=== PATIENT | male | born 1950 | race Caucasian/White ===

== ENCOUNTER 2016-10-20 22:25 | Emergency (ER) | payer MEDICARE, BC ==
[2016-10-20 23:36] VITALS: TEMP 98.5
[2016-10-20] MEDS ORDERED: Sodium Chloride 0.9% 1,000 ML IV STA (23:56)
--- NOTE | 2016-10-21 00:03 | ED PDOC ---
Arrival/HPI - General Chief Complaint: GI Problem Time Seen by Provider: 10/20/16 23:56 Historian: Patient, Family - History of Present Illness Narrative History of Present Illness (Text): 10/21/16 00:03 A 66 year old male, whose past medical history includes colorectal cancer, presents to the emergency department complaining of diarrhea. Patient notes soft , loose bowel movements and a strong odor. Patient reports he started chemotherapy two days ago. Patient's niece reports patient had stool testing done in the hospital this morning. Patient denies any fever or any other complaints at this time. Symptom Onset: Sudden Symptom Course: Unchanged Activities at Onset: Rest Context: Home Past Medical History - Provider Review Nursing Documentation Reviewed: Yes - Cardiac Hx Cardiac Disorders: Yes - Pulmonary Hx Respiratory Disorders: No - Neurological Hx Neurological Disorder: No - HEENT Hx HEENT Disorder: No - Renal Hx Renal Disorder: No - Endocrine/Metabolic Hx Endocrine Disorders: No - Hematological/Oncological Hx Blood Disorders: Yes Hx Cancer: Yes (colorectal) Hx Chemotherapy: Yes - Integumentary Hx Dermatological Disorder: No - Musculoskeletal/Rheumatological Hx Musculoskeletal Disorders: No - Gastrointestinal Hx Gastrointestinal Disorders: Yes Hx Bowel Surgery: Yes Hx Diarrhea: Yes - Genitourinary/Gynecological Hx Genitourinary Disorders: No - Psychiatric Hx Psychophysiologic Disorder: No Hx Substance Use: No Family/Social History - Physician Review Nursing Documentation Reviewed: Yes Family/Social History: No Known Family HX Smoking Status: Never Smoked Hx Alcohol Use: No Hx Substance Use: No Allergies/Home Meds Allergies/Adverse Reactions: Allergies No Known Allergies Allergy (Verified 10/20/16 23:35) Home Medications: Home Meds Medication Instructions Recorded Confirmed Aspirin [Ecotrin] 81 mg PO DAILY 10/20/16 10/20/16 Atorvastatin [Lipitor] 80 mg PO DAILY 10/20/16 10/20/16 Spironolactone [Spironolactone] mg PO 10/20/16 Review of Systems - Physician Review All systems were reviewed & negative as marked: Yes - Review of Systems Constitutional: absent: Fevers Gastrointestinal: Diarrhea Physical Exam Vital Signs Reviewed: Yes Vital Signs Temp Pulse Resp BP Pulse Ox 10/21/16 00:35 71 16 133/78 99 10/20/16 23:36 98.5 F 68 16 137/73 94 L Temperature: Afebrile Blood Pressure: Normal Pulse: Regular Respiratory Rate: Normal Appearance: Positive for: Well-Appearing, Non-Toxic, Comfortable Pain Distress: None Mental Status: Positive for: Alert and Oriented X 3 - Systems Exam Head: Present: Atraumatic, Normocephalic Pupils: Present: PERRL Extroacular Muscles: Present: EOMI Conjunctiva: Present: Normal Mouth: Present: Moist Mucous Membranes Neck: Present: Normal Range of Motion Respiratory/Chest: Present: Clear to Auscultation, Good Air Exchange, Other ( port R chest wall). No: Respiratory Distress, Accessory Muscle Use Cardiovascular: Present: Regular Rate and Rhythm, Normal S1, S2. No: Murmurs Abdomen: Present: Normal Bowel Sounds. No: Tenderness, Distention, Peritoneal Signs Back: Present: Normal Inspection Upper Extremity: Present: Normal Inspection. No: Cyanosis, Edema Lower Extremity: Present: Normal Inspection. No: Edema Neurological: Present: GCS=15, CN II-XII Intact, Speech Normal Skin: Present: Warm, Dry, Normal Color. No: Rashes Psychiatric: Present: Alert, Oriented x 3, Normal Insight, Normal Concentration Medical Decision Making ED Course and Treatment: 10/21/16 03:43 pt resting comfortably after 2L NS bolus. I offered admission if he thought he is still too weak to go home but he says he feels ok and would rather be at home which I feel is reasonable. - Lab Interpretations Lab Results: 10/21/16 00:10 10/21/16 00:10 Lab Results 10/21/16 00:10: WBC 6.2, RBC 4.50, Hgb 11.8 L, Hct 34.6 L, MCV 76.9 L, MCH 26.2 , MCHC 34.1, RDW 14.9 H, Plt Count 236, MPV 9.6, Gran % 77.3 H, Lymph % (Auto) 10.9 L, [place] % (Auto) 9.6 H, Eos % (Auto) 2.0, Baso % (Auto) 0.2, Gran # 4.76, Lymph # 0.7 L, [place] # 0.6, Eos # 0.1, Baso # 0.01 10/21/16 00:10: Sodium 129 L, Potassium 4.9, Chloride 94 L, Carbon Dioxide 27, Anion Gap 13, BUN 24 H, Creatinine 0.8, Est GFR ( Amer) > 60, Est GFR ( Non-Af Amer) > 60, Random Glucose 88, Calcium 9.5, Total Bilirubin 1.0, AST 128 H, ALT 233 H, Alkaline Phosphatase 120, Total Protein 8.1, Albumin 4.4, Globulin 3.8, Albumin/Globulin Ratio 1.2 I have reviewed the lab results: Yes - Medication Orders Current Medication Orders: Discontinued Medications Sodium Chloride (Sodium Chloride 0.9%) 1,000 mls @ 999 mls/hr IV .Q1H1M STA Stop: 10/21/16 00:56 Last Admin: 10/21/16 00:17 Dose: 999 mls/hr Sodium Chloride (Sodium Chloride 0.9%) 1,000 mls @ 999 mls/hr IV .Q1H1M STA Stop: 10/21/16 02:45 Last Admin: 10/21/16 02:09 Dose: 999 mls/hr - Scribe Statement The provider has reviewed the documentation as recorded by the Veronique Prieto Provider Scribe Attestation: All medical record entries made by the Veronique were at my direction and personally dictated by me. I have reviewed the chart and agree that the record accurately reflects my personal performance of the history, physical exam, medical decision making, and the department course for this patient. I have also personally directed, reviewed, and agree with the discharge instructions and disposition. Disposition/Present on Arrival - Present on Arrival Any Indicators Present on Arrival: No History of DVT/PE: No History of Uncontrolled Diabetes: No Urinary Catheter: No History of Decub. Ulcer: No History Surgical Site Infection Following: None - Disposition Have Diagnosis and Disposition been Completed?: Yes Diagnosis: Diarrhea, Dehydration Disposition: HOME/ ROUTINE Disposition Time: 03:45 Condition: STABLE
[2016-10-21 00:18] LABS: ADD MANUAL DIFF? NO
[2016-10-21 00:28] LABS: BASO # 0.01 K/mm3 (0.0-2.0); BASO % 0.2 % (0.0-3.0); EOS # 0.1 (0.0-0.7); GRAN # 4.76 (1.4-6.5); GRAN % 77.3 % (50.0-68.0); HEMATOCRIT 34.6 % (42.0-52.0); LYMPH # 0.7 (1.2-3.4); LYMPH % 10.9 % (22.0-35.0); MEAN CELL VOLUME 76.9 fL (80.0-105.0); MEAN CORPUSCULAR HEMOGLOBIN 26.2 pg (25.0-35.0); MEAN CORPUSCULAR HGB CONC 34.1 g/dl (31.0-37.0); MEAN PLATELET VOLUME 9.6 fl (7.0-11.0); MONO # 0.6 (0.1-0.6); MONO % 9.6 % (1.0-6.0); PLATELET COUNT 236 10^3/uL (120.0-450.0); RED CELL DISTRIBUTION WIDTH 14.9 % (11.5-14.5); WHITE BLOOD COUNT 6.2 10^3/ul (4.5-11.0)
[2016-10-21 00:36] LABS: ALB/GLOB RATIO 1.2 (1.1-1.8); ALKALINE PHOSPHATASE 120 U/L (38-133); ALT/SGPT 233 U/L (7-56); AST/SGOT 128 U/L (15-59); BLOOD UREA NITROGEN 24 mg/dL (7-21); CALCIUM 9.5 mg/dL (8.4-10.5); CARBON DIOXIDE 27 mmol/L (21-33); CHLORIDE 94 mmol/L (98-107); GFR AFRICAN-AMERICAN > 60; GLUCOSE,RANDOM 88 mg/dL (70-110); POTASSIUM 4.9 mmol/L (3.6-5.0); SODIUM 129 mmol/L (132-148); TOTAL PROTEIN 8.1 g/dL (5.8-8.3)
[2016-10-21] MEDS ORDERED: Sodium Chloride 0.9% 1,000 ML IV STA (01:45)
[2016-10-21 04:06] VITALS: BP 142/84; PULSE 68; RESP 16; O2SAT 97
== END 2016-10-21 04:13 | disposition home or self-care (01) ==
LOC: ED 22:25
DX: E86.0 Dehydration (principal); R19.7 Diarrhea, unspecified
CPT/HCPCS: 80053; 85025; 96360; 96361; 99284; J7040

== ENCOUNTER 2016-10-23 12:25 | Inpatient (IN) | payer MEDICARE, BC ==
[2016-10-23 12:33] VITALS: BMI 20.8
[2016-10-23] MEDS ORDERED: Sodium Chloride 0.9% 1,000 ML IV STA (13:07)
--- NOTE | 2016-10-23 13:25 | ED PDOC ---
Arrival/HPI - General Chief Complaint: GI Problem Time Seen by Provider: 10/23/16 12:43 Historian: Patient - History of Present Illness Narrative History of Present Illness (Text): 10/23/16 12:54 A 66 year old male presents to the emergency department complaining of diarrhea for the past 4 days. Patient reports 10-15 episodes of watery diarrhea a day. He mention he received his first chemotherapy 4 days ago, after which the symptoms stated. Patient notes he was given Imodium by his physician, which has some what helped. He denies any fever, pain, vomiting or any other symptoms at this time. PMD: Dr. Payne ([phone]) Time/Duration: Other (4 days) Symptom Onset: Other Symptom Course: Unchanged Quality: Other Activities at Onset: Rest Modifying Factors (Text): first chemotherapy session prior to onset of symptoms Context: Home Past Medical History - Provider Review Nursing Documentation Reviewed: Yes - Infectious Disease Hx of Infectious Diseases: None - Cardiac Hx Cardiac Disorders: Yes - Pulmonary Hx Respiratory Disorders: No - Neurological Hx Neurological Disorder: No - HEENT Hx HEENT Disorder: No - Renal Hx Renal Disorder: No - Endocrine/Metabolic Hx Endocrine Disorders: No - Hematological/Oncological Hx Blood Disorders: Yes Hx Cancer: Yes (colorectal) Hx Chemotherapy: Yes Other/Comment: with Liver Mets -- on Chemotherapy - Integumentary Hx Dermatological Disorder: No - Musculoskeletal/Rheumatological Hx Musculoskeletal Disorders: No - Gastrointestinal Hx Gastrointestinal Disorders: Yes Hx Bowel Surgery: Yes Hx Diarrhea: Yes - Genitourinary/Gynecological Hx Genitourinary Disorders: No - Psychiatric Hx Psychophysiologic Disorder: No Hx Substance Use: No - Surgical History Other/Comment: colorectal surgery. liver surgery. R chest port - Anesthesia Hx Anesthesia: Yes Hx Anesthesia Reactions: No Hx Malignant Hyperthermia: No Family/Social History - Physician Review Nursing Documentation Reviewed: Yes Family/Social History: Unknown Family HX Smoking Status: Never Smoked Hx Alcohol Use: No Hx Substance Use: No Allergies/Home Meds Allergies/Adverse Reactions: Allergies No Known Allergies Allergy (Verified 10/20/16 23:35) Home Medications: Home Meds Medication Instructions Recorded Confirmed Aspirin [Ecotrin] 81 mg PO DAILY 10/20/16 10/20/16 Atorvastatin [Lipitor] 80 mg PO DAILY 10/20/16 10/20/16 Spironolactone [Spironolactone] mg PO 10/20/16 Review of Systems - Physician Review All systems were reviewed & negative as marked: Yes - Review of Systems Constitutional: absent: Fevers Cardiovascular: absent: Chest Pain Gastrointestinal: Diarrhea. absent: Abdominal Pain, Vomiting, Hematochezia Musculoskeletal: absent: Back Pain, Neck Pain Physical Exam Vital Signs Reviewed: Yes Vital Signs Temp Pulse Resp BP Pulse Ox 10/23/16 12:36 98.5 F 80 18 120/78 97 Temperature: Afebrile Blood Pressure: Normal Pulse: Regular Respiratory Rate: Normal Appearance: Positive for: Well-Appearing, Non-Toxic, Comfortable Pain Distress: None Mental Status: Positive for: Alert and Oriented X 3 - Systems Exam Head: Present: Atraumatic, Normocephalic Pupils: Present: PERRL Extroacular Muscles: Present: EOMI Conjunctiva: Present: Normal Mouth: Present: Moist Mucous Membranes Neck: Present: Normal Range of Motion Respiratory/Chest: Present: Clear to Auscultation, Good Air Exchange. No: Respiratory Distress, Accessory Muscle Use Cardiovascular: Present: Regular Rate and Rhythm, Normal S1, S2. No: Murmurs Abdomen: Present: Normal Bowel Sounds. No: Tenderness, Distention, Peritoneal Signs Back: Present: Normal Inspection Upper Extremity: Present: Normal Inspection. No: Cyanosis, Edema Lower Extremity: Present: Normal Inspection. No: Edema Neurological: Present: GCS=15, Speech Normal Skin: Present: Warm, Dry, Normal Color. No: Rashes Psychiatric: Present: Alert, Oriented x 3, Normal Insight, Normal Concentration Medical Decision Making ED Course and Treatment: 10/23/16 14:[address] Payne, who states the patient has visited three times for diarrhea and to admit the patient for intractable diarrhea. Rec rx w flagyl. I have discussed the results and plan with the patient, who expresses understanding. Patient given the opportunity to ask question, all questions were answered and there is agreement with the plan to be admitted to the hospital. [id number] Mendoza who will admit - Lab Interpretations Lab Results: 10/23/16 13:35 10/23/16 13:35 Lab Results 10/23/16 13:35: Sodium 132, Potassium 3.8, Chloride 98, Carbon Dioxide 25, Anion Gap 13, BUN 12, Creatinine 0.7, Est GFR ( Amer) > 60, Est GFR (Non- Af Amer) > 60, Random Glucose 103, Calcium 8.8, Total Bilirubin 1.0, AST 55, ALT 142 H, Alkaline Phosphatase 133, Total Protein 7.3, Albumin 3.8, Globulin 3.5, Albumin/Globulin Ratio 1.1 10/23/16 13:35: WBC 6.7, RBC 4.16, Hgb 10.8 L, Hct 32.2 L, MCV 77.4 L, MCH 26.0 , MCHC 33.5, RDW 14.5, Plt Count 211, MPV 9.2, Gran % 83.0 H, Lymph % (Auto) 7.0 L, [place] % (Auto) 4.7, Eos % (Auto) 5.3 H, Baso % (Auto) 0.0, Gran # 5.59, Lymph # 0.5 L, [place] # 0.3, Eos # 0.4, Baso # 0.00 I have reviewed the lab results: Yes - Medication Orders Current Medication Orders: Metronidazole (Flagyl) 500 mg in 100 mls @ 100 mls/hr IVPB STAT STA PRN Reason: Protocol Stop: 10/23/16 16:49 Last Admin: 10/23/16 16:05 Dose: 100 mls/hr Sodium Chloride (Sodium Chloride 0.9%) 1,000 mls @ 100 mls/hr IV .Q10H [facility] Last Admin: 10/23/16 16:05 Dose: 100 mls/hr Discontinued Medications Sodium Chloride (Sodium Chloride 0.9%) 1,000 mls @ 999 mls/hr IV .Q1H1M STA Stop: 10/23/16 14:07 Last Admin: 10/23/16 13:28 Dose: 999 mls/hr - Scribe Statement The provider has reviewed the documentation as recorded by the Scribe Tianna Stein training under Jose Angel Jacinto Provider Scribe Attestation: All medical record entries made by the Scribe were at my direction and personally dictated by me. I have reviewed the chart and agree that the record accurately reflects my personal performance of the history, physical exam, medical decision making, and the department course for this patient. I have also personally directed, reviewed, and agree with the discharge instructions and disposition. Disposition/Present on Arrival - Present on Arrival Any Indicators Present on Arrival: No History of DVT/PE: No History of Uncontrolled Diabetes: No Urinary Catheter: No History of Decub. Ulcer: No History Surgical Site Infection Following: None - Disposition Have Diagnosis and Disposition been Completed?: Yes Diagnosis: Intractable diarrhea Disposition: HOSPITALIZED Disposition Time: 14:35 Patient Problems: Current Active Problems Problem Status Onset Intractable diarrhea Acute Condition: STABLE
[2016-10-23 13:36] LABS: ADD MANUAL DIFF? NO
[2016-10-23 13:42] LABS: EOS # 0.4 (0.0-0.7); EOS % 5.3 % (1.5-5.0); GRAN # 5.59 (1.4-6.5); HEMATOCRIT 32.2 % (42.0-52.0); LYMPH # 0.5 (1.2-3.4); MEAN CELL VOLUME 77.4 fL (80.0-105.0); MEAN CORPUSCULAR HGB CONC 33.5 g/dl (31.0-37.0); MEAN PLATELET VOLUME 9.2 fl (7.0-11.0); MONO # 0.3 (0.1-0.6); MONO % 4.7 % (1.0-6.0); PLATELET COUNT 211 10^3/uL (120.0-450.0); RED CELL DISTRIBUTION WIDTH 14.5 % (11.5-14.5); WHITE BLOOD COUNT 6.7 10^3/ul (4.5-11.0)
[2016-10-23 13:50] LABS: ALB/GLOB RATIO 1.1 (1.1-1.8); ALKALINE PHOSPHATASE 133 U/L (38-133); ALT/SGPT 142 U/L (7-56); AST/SGOT 55 U/L (15-59); BLOOD UREA NITROGEN 12 mg/dL (7-21); CALCIUM 8.8 mg/dL (8.4-10.5); CARBON DIOXIDE 25 mmol/L (21-33); CHLORIDE 98 mmol/L (98-107); GFR AFRICAN-AMERICAN > 60; GLUCOSE,RANDOM 103 mg/dL (70-110); POTASSIUM 3.8 mmol/L (3.6-5.0); SODIUM 132 mmol/L (132-148); TOTAL PROTEIN 7.3 g/dL (5.8-8.3)
[2016-10-23] MEDS ORDERED: metroNIDAZOLE IV 500 mg/100 ml 500 MG/100 ML BAG IVPB STA (15:50)
[2016-10-23] MEDS: Sodium Chloride 0.9% 1,000 ML IV SCH (16:05)
[2016-10-23 19:51] LABS: CHOLESTEROL 126 mg/dL (130-200)
[2016-10-23 20:32] LABS: IRON 109 ug/dL (45-180)
[2016-10-23 21:33] LABS: URINE BILIRUBIN NEGATIVE (NEGATIVE); URINE BLOOD NEGATIVE (NEGATIVE); URINE GLUCOSE (UA) NEGATIVE (NEGATIVE); URINE KETONE NEGATIVE (NEGATIVE); URINE LEUKOCYTE ESTERASE NEGATIVE Leu/uL (NEGATIVE); URINE PROTEIN NEGATIVE mg/dL (<30 mg/dL); URINE UROBILINOGEN 0.2 E.U./dL (<1 E.U./dL)
[2016-10-23 21:52] LABS: URINE APPEARANCE CLEAR (CLEAR); URINE COLOR YELLOW (YELLOW)
[2016-10-23] MEDS ORDERED: Pneumococcal 23-Valent Vaccine IM ONE (21:58)
[2016-10-23] MEDS: metroNIDAZOLE IV 500 mg/100 ml 500 MG/100 ML BAG IVPB SCH (22:07)
[2016-10-24] MEDS: metroNIDAZOLE IV 500 mg/100 ml 500 MG/100 ML BAG IVPB SCH ×3 (05:31→21:10)
[2016-10-24 07:33] LABS: ALB/GLOB RATIO 1.1 (1.1-1.8); ALKALINE PHOSPHATASE 138 U/L (38-133); ALT/SGPT 116 U/L (7-56); AST/SGOT 54 U/L (15-59); BILIRUBIN,TOTAL 0.8 mg/dL (0.2-1.3); BLOOD UREA NITROGEN 8 mg/dL (7-21); CALCIUM 8.1 mg/dL (8.4-10.5); CARBON DIOXIDE 25 mmol/L (21-33); CHLORIDE 102 mmol/L (95-110); GFR AFRICAN-AMERICAN > 60; GLUCOSE,RANDOM 95 mg/dL (70-110); POTASSIUM 3.8 mmol/L (3.6-5.0); SODIUM 133 mmol/L (132-148)
[2016-10-24 07:38] LABS: HEMATOCRIT 29.3 % (42.0-52.0); MEAN CELL VOLUME 77.5 fL (80.0-105.0); MEAN CORPUSCULAR HEMOGLOBIN 25.4 pg (25.0-35.0); MEAN CORPUSCULAR HGB CONC 32.8 g/dl (31.0-37.0); MEAN PLATELET VOLUME 9.3 fl (7.0-11.0); RED CELL DISTRIBUTION WIDTH 14.7 % (11.5-14.5); WHITE BLOOD COUNT 5.6 10^3/ul (4.5-11.0)
[2016-10-24 12:41] LABS: FOLATE > 20.0 ng/mL
--- NOTE | 2016-10-24 16:49 | CON ---
DATE: 10/24/2016 The patient was seen and examined earlier today. REQUEST FOR CONSULT: Diarrhea. HISTORY OF PRESENT ILLNESS: This is a 66-year-old male who has colon cancer with metastasis to the l iver, on chemotherapy. The patient just started chemotherapy about 4 or 5 days ago and reports that he started having watery diarrhea post-chemo treatment. Prior to starting chemo he states that he wa s moving his bowels. He was having formed stool and was very active and he initially started having about 10-15 episodes of watery diarrhea a day. The patient states that he was given Imodium by his d shannan, which helped a little bit. He denies any fever or chills. No shortness of breath or chest pa in. No complaints of any nausea, vomiting or abdominal pain. He states that the diarrhea is a littl e better. His last bowel movement, which was watery, he had 2 last night. He did not notice any turner emanuel or bright red blood. He receives chemotherapy at [facility] in [place] and is being treate d by Dr. Bibi Payne and he gives the phone number for her to be contacted at area code [phone] . The patient states that his last colonoscopy was back in 12/2015 in [place]. He also had surgery, abdominal surgery, back in 04/2016 and had liver surgery in [place] on 08/24/2016. He originally w as from [place] and he states that he came to [place] to stay with his niece. He denies any sympt oms of acid reflux. No reports of any hematemesis or hemoptysis. No complaints of any loss of appet ite until recent events with the diarrhea. PAST MEDICAL HISTORY: As stated above, colorectal cancer with mets to the liver, currently receiving chemotherapy, came with intractable diarrhea secondary to chemotherapy. Rule out C. diff. Multiple stool studies were sent, which is pending, although the stool for C. diff is negative. He also has history of hyperlipidemia. PAST SURGICAL HISTORY: As stated above. Colonoscopy was 12/2015. He had colon surgery and liver celis rgery. Colorectal surgery. He also has a right chest port. ALLERGIES: No known drug allergies. MEDICATIONS: Reviewed as per MAR. FAMILY HISTORY: Noncontributory at this time. SOCIAL HISTORY: Denies smoking, EtOH or substance abuse. REVIEW OF SYSTEMS: Systems were reviewed with positive findings, see HPI. VITAL SIGNS: Temperature is 98.3, blood pressure 131/77, pulse is 70, respirations 18, 97 on room ai r. LABORATORY: WBC is 5.6, H and H are 9.6 and 29.3, platelets 197. Sodium 133, K 3.8, BUN is 8, creat inine is 0.7. His total bilirubin is 0.8, AST 54, ALT is 116, alkaline phosphatase is 138. TSH is 0 .27. Urine is negative. Stool for guaiac is positive. PHYSICAL EXAMINATION: HEENT: Sclerae are anicteric. NECK: Supple. CARDIAC: S1, S2. LUNGS: Clear. ABDOMEN: With bowel sounds, soft, nontender on the left quadrant area. He has a palpable device in his abdomen, nontender. No rebound, guarding. EXTREMITIES: Positive pedal pulses, no edema. NEUROLOGIC: Awake, alert and oriented. ASSESSMENT: A 66-year-old male with colon cancer with metastasis to the liver, status post colorecta l surgery and liver surgery, recently received first round of chemo 4 or 5 days ago, complaining of i ntractable diarrhea likely secondary to chemotherapy. Stool for C. diff is negative. He has multipl e stool tests which are pending for Giardia culture. Other comorbidity is hyperlipidemia. The patie nt also has anemia and elevated liver enzymes, could be secondary to liver mets. Consider drug induc ed as well. We will monitor that. Continue IV fluids for hydration. He is on clear liquids and adv ance as tolerated. Agree with the Flagyl. He is getting continued GI prophylaxis. The patient is p ending iron studies. Will follow up stool studies. Thank you for this consult and make sure to monitor patient's electrolytes and replete as necessary. Thank you for this consult and for allowing us to participate in your patient's care. We will make rodger rivero recommendations based upon patient's clinical course. The patient was seen and case discussed with Dr. Goff. Serene June SARAH cc: [id number] TT: 10/24/2016 16:48:50 Confirmation # [id number] Dictation # [id number] mn
--- NOTE | 2016-10-24 18:55 | HP ---
CHIEF COMPLAINT: Intractable diarrhea. HISTORY OF PRESENT ILLNESS: This is patient is a 66-year-old male with a history of cancer, got his chemotherapy, came with intractable diarrhea the past 4 days. The patient reports 10-15 episodes of watery diarrhea a day. He mentioned he received his first chemotherapy 4 days ago, after which his s ymptoms started. The patient noted that he was given Imodium by his physician that helped somewhat. He denies any fever, pain, vomiting or any other symptoms. PAST MEDICAL HISTORY: History of colorectal cancer, getting chemotherapy, mass in the liver, history of bowel surgery. The patient has right-sided chest port. FAMILY HISTORY: Father and mother noncontributory. HABITS: Never smoked, no drugs, no ethanol as per patient. ALLERGIES: The patient is not allergic to any medications. HOME MEDICATIONS: Aspirin, atorvastatin, spironolactone. REVIEW OF SYSTEMS: The patient seen and examined in his room. Came with intractable diarrhea from a couple of days, but now it is a little bit better. The patient was n.p.o., started on a clear liqui d diet. No back pain, no neck pain, no fever, no chills. No dyspnea, no chest pain. PHYSICAL EXAMINATION: VITAL SIGNS: Temperature 98.5, pulse 80, respiratory rate 18, blood pressure 120/78, pulse oximetry 97. HEENT: Head normocephalic, atraumatic. Eyes: PERRLA. Extraocular muscles intact. Conjunctivae are clear. Nose patent. Mucous membranes moist. NECK: Supple. No carotid bruits, JVD or thyromegaly. CHEST: Bilateral symmetrical. HEART: S1, S2 positive. LUNGS: Clear to auscultation. ABDOMEN: Soft. Bowel sounds present. No organomegaly. EXTREMITIES: No edema, no cyanosis. NEUROLOGIC: The patient is awake, alert, moving all 4 extremities. No focal deficits. LABORATORY DATA: Sodium 132, potassium 3.8, BUN 12, creatinine 0.7, glucose 103, calcium 8.8, ALT 14 2, white blood cells 6.7, hemoglobin 10.8, hematocrit 32.2, platelets 211. ASSESSMENT AND PLAN: The patient with abnormal liver function test, anemia, history of colorectal ca ncer, got antibiotics, got chemotherapy, now having intractable diarrhea from a couple of days. We a dmitted the patient to put antibiotics, Flagyl, and started normal saline, dehydration. The patient was getting chemotherapy from [facility] for his colorectal cancer and for his liver metastases. He gave me the phone number of his oncologist, Dr. Bibi Reed, phone number [phone]. Discus estefany done with Dr. Mtz's staff. Dr. Mtz was not available. We left our phone number with Dr. Yari soliman. Whenever she will call, we will discuss patient more. The patient is getting comfortable, gett ing IV fluid, clear liquid breakfast started. Lunch will be full liquid and dinner will be soft diet if able to tolerate. Gastrointestinal consult called with Dr. Goff. Meanwhile, continue presen t treatment. Gastrointestinal and deep venous thrombosis prophylaxis. Repeat labs. We will follow up. Evy Mendoza MD cc: [id number] TT: 10/24/2016 18:54:47 anjel
--- NOTE | 2016-10-25 02:28 | CON ---
DATE: 10/24/2016 HISTORY OF PRESENT ILLNESS: This patient was seen and evaluated earlier. This is an addendum to the GI consultation report dictated by Serene Watkins NP. This patient had a history of colon cancer, had a colon surgery done in the [facility] in . In 12/2015, the patient had radiati on and chemo. The patient was found to have liver mets, had a surgery done on 08/2016, hepatic surge ry, subcortical resection done in August 2016 in hospital. The patient has been port placed for what appears to be far portal vein infusion. This was started about a month ago. He has just had a second of this protein infusion on days ago. The patient had systemically chemo started on Sunday f irst time. She has developed severe diarrhea on multiple episodes, presented to the Emergency Room. He was also complaining of foul-smelling urine. Now, he states the diarrhea is slowing down. much better. Denies any complaint of abdominal pain or fever. On examination, the abdomen is soft. Ther e is no mass palpable. The support palpable the left side of the abdomen wall. Colorectal cancer, metastatic colon cancer, status post colon resection for colorectal cancer or colo n dissection. The patient did have chemoradiation at that time. Presently, had a liver resection do ne following with this local and protein fusion and also systemic therapy has diarrhea, probably rela allie to chemo-induced. Would recommend follow up with the electrolytes and symptomatically manage the patient at the present time with an Imodium. Thank you very much for allowing us to participate in the care of the patient. Omer Goff MD cc: [id number] TT: 10/25/2016 02:27:11 Confirmation # [id number] Dictation # [id number] mn
[2016-10-25] MEDS: Sodium Chloride 0.9% 1,000 ML IV SCH (02:29)
[2016-10-25] MEDS: metroNIDAZOLE IV 500 mg/100 ml 500 MG/100 ML BAG IVPB SCH (05:30)
[2016-10-25 07:35] LABS: HEMATOCRIT 28.8 % (42.0-52.0); MEAN CELL VOLUME 76.4 fL (80.0-105.0); MEAN CORPUSCULAR HEMOGLOBIN 25.5 pg (25.0-35.0); MEAN CORPUSCULAR HGB CONC 33.3 g/dl (31.0-37.0); MEAN PLATELET VOLUME 9.2 fl (7.0-11.0); RED CELL DISTRIBUTION WIDTH 14.5 % (11.5-14.5); WHITE BLOOD COUNT 4.1 10^3/ul (4.5-11.0)
[2016-10-25 08:17] LABS: IRON 37 ug/dL (45-180)
[2016-10-25 08:20] LABS: BLOOD UREA NITROGEN 8 mg/dL (7-21); CALCIUM 8.4 mg/dL (8.4-10.5); CARBON DIOXIDE 24 mmol/L (21-33); CHLORIDE 101 mmol/L (95-110); CHOLESTEROL 94 mg/dL (130-200); GFR AFRICAN-AMERICAN > 60; GLUCOSE,RANDOM 98 mg/dL (70-110); POTASSIUM 3.5 mmol/L (3.6-5.0); SODIUM 132 mmol/L (132-148)
[2016-10-25 08:48] VITALS: BP 140/82; PULSE 68; RESP 19; TEMP 98.1; O2SAT 99
[2016-10-25 13:17] LABS: FOLATE > 20.0 ng/mL
--- NOTE | 2016-10-25 13:20 | PN ---
DATE: 10/25/2016 Seen and examined at the bedside late this morning. The patient is reported to have had 3 loose erica l movements last night and one this morning. The patient states that the diarrhea is much improved. He received Imodium morning and 2 doses yesterday. Denies any nausea, vomiting, abdominal pain, lenny rtness of breath or chest pain. No reports of any bleeding. He is tolerating his diet. The patient expresses he wants to go home. VITAL SIGNS: Temperature is 98.1, blood pressure is 140/82, pulse 60, respirations 19, 99 on room ai r. LABORATORY DATA: Today, WBC is 4.1, the hemoglobin is 9.6, hematocrit 28.8, platelets are 200. His sodium is 132, K is 3.5, BUN 8, creatinine 0.7. Iron is 37. TIBC is 367, percent saturation is 10. B12 is pending as well as a folate. PHYSICAL EXAMINATION: HEENT: Sclerae are anicteric. NECK: Supple. CARDIAC: S1, S2. LUNGS: Clear. ABDOMEN: With bowel sounds, soft, nontender, left quadrant support is palpable, with abdominal wall nontender. ASSESSMENT AND PLAN: This is a 66-year-old male with colorectal cancer with metastasis. He is statu s post colon resection and went for a resection with a local fusion pump, complaint of diarrhea, like ly related to chemotherapy. It is slowly improving. Stool for Clostridium difficile is negative. C ultures are pending and other stool studies. He is tolerating oral intake. He is on Imodium p.r.n. and is on Flagyl IV, as well as gastrointestinal prophylaxis and IV fluid. Presently, will continue that. The patient wants to go home. I did speak to Dr. Mendoza who has been in touch with the joey mon's oncologist who recommends that the patient continue admission until his diarrhea improves. The p atient was seen and case discussed with Dr. Goff. Serene Watkins SARAH cc: [facility] TT: 10/25/2016 13:20:04 Confirmation # [id number] Dictation # [id number] anjel
--- NOTE | 2016-10-25 18:58 | CP.PCM.PN ---
Subjective - Date & Time of Evaluation Date of Evaluation: 10/25/16 Time of Evaluation: 14:00 - Subjective Subjective: Patient wanted to leave against medical advice, signed the document please see details in the sheet. Flagyl 500mg oral tid given prescription for 5 days. Objective - Vital Signs/Intake and Output Vital Signs (last 24 hours): Temp Pulse Resp BP Pulse Ox 98.1 F 68 19 140/82 99 10/25/16 06:00 10/25/16 06:00 10/25/16 06:00 10/25/16 06:00 10/25/16 06:00 Intake and Output: 10/25/16 10/25/16 06:59 18:59 Intake Total 1979 Balance 1979 - Labs Labs: 10/25/16 06:30 10/25/16 06:30
== END 2016-10-25 14:43 | disposition left against medical advice (07) | DRG 394 ==
LOC: ED 12:25 → ERH 15:51 → 3RSO 18:02 → OBSVTOIN 10-24 15:15
PROVIDERS: ADMIT Internal Medicine; ATTEND Internal Medicine
DX: K52.1 Toxic gastroenteritis and colitis (principal); C78.7 Secondary malignant neoplasm of liver and intrahepatic bile duct; C19 Malignant neoplasm of rectosigmoid junction; D64.9 Anemia, unspecified; E86.0 Dehydration; E78.5 Hyperlipidemia, unspecified; T45.1X5A Adverse effect of antineoplastic and immunosuppressive drugs, initial encounter

== ENCOUNTER 2017-01-17 19:17 | Inpatient (IN) | payer MEDICARE, BC ==
[2017-01-17 19:45] VITALS: BMI 20.1
[2017-01-17] MEDS ORDERED: Sodium Chloride 0.9% 1,000 ML IV STA (19:56)
[2017-01-17 20:34] LABS: BASO # 0.01 K/mm3 (0.0-2.0); BASO % 0.1 % (0.0-3.0); EOS % 0.2 % (1.5-5.0); GRAN # 7.32 (1.4-6.5); GRAN % 89.7 % (50.0-68.0); HEMATOCRIT 38.6 % (42.0-52.0); LYMPH # 0.4 (1.2-3.4); MEAN CELL VOLUME 75.5 fl (80.0-105.0); MEAN CORPUSCULAR HEMOGLOBIN 26.2 pg (25.0-35.0); MEAN CORPUSCULAR HGB CONC 34.7 g/dl (31.0-37.0); MEAN PLATELET VOLUME 9.1 fl (7.0-11.0); MONO # 0.4 (0.1-0.6); PLATELET COUNT 253 10^3/uL (120.0-450.0); RED CELL DISTRIBUTION WIDTH 19.2 % (11.5-14.5); WHITE BLOOD COUNT 8.2 10^3/ul (4.5-11.0)
[2017-01-17 20:44] LABS: ALB/GLOB RATIO 1.2 (1.1-1.8); ALKALINE PHOSPHATASE 253 U/L (38-126); ALT/SGPT 74 U/L (7-56); AMYLASE 87 U/L (35-125); AST/SGOT 75 U/L (17-59); BILIRUBIN,TOTAL 1.3 mg/dL (0.2-1.3); BLOOD UREA NITROGEN 15 mg/dL (7-21); CALCIUM 9.6 mg/dL (8.4-10.5); CARBON DIOXIDE 29 mmol/L (21-33); CHLORIDE 94 mmol/L (98-107); GFR AFRICAN-AMERICAN > 60; GLUCOSE,RANDOM 152 mg/dL (70-110); LIPASE 91 U/L (23-300); POTASSIUM 4.2 mmol/L (3.6-5.0); SODIUM 135 mmol/L (132-148); TOTAL PROTEIN 8.4 g/dL (5.8-8.3)
--- NOTE | 2017-01-17 20:56 | ED PDOC ---
Arrival/HPI - General Historian: Patient EM Caveat: Acuity of Condition - History of Present Illness Time/Duration: Prior to Arrival Symptom Onset: Sudden Symptom Course: Unchanged Quality: Dullness Severity Level: 4 Activities at Onset: Rest Context: Home <P[place]enix [place] - Last Filed: 01/17/17 22:55> <Shwetha Olivia - Last Filed: 01/17/17 23:08> - General Chief Complaint: Abdominal Pain Time Seen by Provider: 01/17/17 19:35 - History of Present Illness Narrative History of Present Illness (Text): Patient is a 66 year old male with a history of colorectal cancer with liver metastasis who presents to [facility] ED with complaints of abdominal pain which started last night s/p 2 days of total body chemotherapy. Abdominal pain was also accompanied with nausea and vomiting this morning.This is patient's sixth round of chemotherapy. Patient is currently having the same experience he had during his first round of chemo. He states that since then he has not had any problems until this last round. He describes the abdominal pain as 4/10, dull, and non radiating. Patient has had 4 episodes of bilious emesis; has not eaten in the past 3 days according to patient's sister who is with him at this hospital visit. Patient mentions that he has not been able to sleep because of pain. He denies diarrhea, weakness, dizziness, headache. 01/17/17 20:59 (Phoenix Vegas) Past Medical History - Provider Review Nursing Documentation Reviewed: Yes - Travel History If Yes, travel location?: [place] - Infectious Disease Hx of Infectious Diseases: None - Cardiac Hx Cardiac Disorders: Yes - Pulmonary Hx Respiratory Disorders: No - Neurological Hx Neurological Disorder: No Hx Transient Ischemic Attacks (TIA): Yes (01/2016) Other/Comment: left hand weakness and blurred vision after tia, left hand weaknes has since improved and so had blurred vision, peripheral vision"minor problem" as per pt - HEENT Hx HEENT Disorder: No - Renal Hx Renal Disorder: No - Endocrine/Metabolic Hx Endocrine Disorders: No - Hematological/Oncological Hx Blood Disorders: Yes Hx Cancer: Yes (colorectal) Hx Chemotherapy: Yes (01/10/17) Other/Comment: with Liver Mets -- on Chemotherapy, pt has implanted chemo pump left abd for liver ca, pt goes every 2 wks on wednesday for iv chemo, last treatment pt was ok for 2 days then experienced diarrhea and foul smelling gas on 2 days later, ok next day then diarrhea started the day after had 10 to 14 bm's some soft some shreds - Integumentary Hx Dermatological Disorder: No - Musculoskeletal/Rheumatological Hx Musculoskeletal Disorders: No Hx Falls: No - Gastrointestinal Hx Gastrointestinal Disorders: Yes (diarrhea) Hx Vomiting: Yes (current) - Genitourinary/Gynecological Hx Genitourinary Disorders: No - Psychiatric Hx Psychophysiologic Disorder: No Hx Substance Use: No - Surgical History Hx Cholecystectomy: Yes Other/Comment: colorectal surgery, colostomy reversal 04/2016,dx 1 yr ago colon ca. liver surgery. R chest port, pt had chemo and radiation when dx with colorectal ca, then had bowel sx with colostomy , had chemo then on 15% liver removed 1 month ago - Anesthesia Hx Anesthesia: Yes Hx Anesthesia Reactions: No Hx Malignant Hyperthermia: No <P[place]enix [place] - Last Filed: 01/17/17 22:55> Family/Social History - Physician Review Nursing Documentation Reviewed: Yes Family/Social History: Other Smoking Status: Never Smoked Hx Alcohol Use: No Hx Substance Use: No <P[place]enix [place] - Last Filed: 01/17/17 22:55> <Shwetha Olivia - Last Filed: 01/17/17 23:08> Narrative Family History (Free Text): non contributory 01/17/17 21:25 (Phoenix [place]) Allergies/Home Meds <P[place]enix [place]gas - Last Filed: 01/17/17 22:55> <Shwetha Olivia - Last Filed: 01/17/17 23:08> Allergies/Adverse Reactions: Allergies No Known Allergies Allergy (Verified 01/17/17 19:55) Home Medications: Home Meds Medication Instructions Recorded Confirmed Aspirin [Ecotrin] 81 mg PO DAILY PRN 10/20/16 01/17/17 Atorvastatin [Lipitor] 80 mg PO DAILY 10/20/16 01/17/17 Loperamide [Loperamide HCl] 2 mg PO PC PRN 10/23/16 01/17/17 Review of Systems - Physician Review All systems were reviewed & negative as marked: Yes - Review of Systems Systems not reviewed;Unavailable: Acuity of Condition Constitutional: Fatigue, Other (insomnia) ENT: Normal. absent: Hearing Changes Respiratory: Normal. absent: SOB, Cough Gastrointestinal: Abdominal Pain (mid epigastric ), Nausea, Vomiting, Appetite Changes. absent: Stool Changes, Constipation, Diarrhea Genitourinary Male: Normal. absent: Dysuria Skin: Normal. absent: Rash, Skin Lesions Neurological: absent: Headache, Dizziness, Focal Weakness Endocrine: Normal Hemo/Lymphatic: Normal Psychiatric: Normal <P[place]enix [place] - Last Filed: 01/17/17 22:55> Physical Exam Vital Signs Reviewed: Yes Temperature: Afebrile Blood Pressure: Normal Pulse: Regular Respiratory Rate: Normal Appearance: Positive for: Well-Appearing, Ill-Appearing Pain Distress: Mild Mental Status: Positive for: Alert and Oriented X 3 - Systems Exam Head: Present: Atraumatic, Normocephalic Extroacular Muscles: Present: EOMI Conjunctiva: Present: Normal Mouth: Present: Moist Mucous Membranes Respiratory/Chest: Present: Clear to Auscultation, Good Air Exchange. No: Wheezes Cardiovascular: Present: Regular Rate and Rhythm, Normal S1, S2. No: Murmurs Abdomen: Present: Tenderness (mid epigastric region). No: Normal Bowel Sounds ( absent bowel sounds), Peritoneal Signs Neurological: Present: CN II-XII Intact Skin: Present: Warm, Normal Color Psychiatric: Present: Alert, Oriented x 3 <P[place]enix [place] - Last Filed: 01/17/17 22:55> Medical Decision Making <P[place]enix [place] - Last Filed: 01/17/17 22:55> <Shwetha Olivia - Last Filed: 01/17/17 23:08> ED Course and Treatment: Assessment 66 year old male with colorectal and liver cancer presenting with nausea and vomiting Plan - CT abdomen - IVF, Zofran, Pepcid, Morphine - EKG - NPO - Admit to hospitalist service 01/17/17 22:53 (Phoenix [place]) 01/17/17 Patient Seen With Resident: In agreement with resident note which contains more details about the patient. Patient was seen and evaluated with resident. Came up with plan and treatment together. 01/17/17 23:04 Patient with liver and colon CA, followed at , here with abdominal pain and vomiting - given analgesia and antiemetic - patient with new LFT elevations - will need tba, GI consult and likely oncology evaluation or discussion with SK - discussed with Dr. Berumen, covering Dr. Crook, the on-call attending. CT a/ p results are pending at this time. CT will be done without IV contrast because the CT scanner is broken and no injections are possible in the only available one in the hospital here. (Shwetha Olivia) - Lab Interpretations Lab Results: 01/17/17 20:28 01/17/17 20:28 Lab Results 01/17/17 20:28: Lactic Acid 1.4 01/17/17 20:28: Sodium 135, Potassium 4.2, Chloride 94 L, Carbon Dioxide 29, Anion Gap 16, BUN 15, Creatinine 0.8, Est GFR ( Amer) > 60, Est GFR (Non- Af Amer) > 60, Random Glucose 152 H, Calcium 9.6, Total Bilirubin 1.3, AST 75 H , ALT 74 H, Alkaline Phosphatase 253 H, Lactate Dehydrogenase 765 H, Total Creatine Kinase 64, Troponin I < 0.01, Total Protein 8.4 H, Albumin 4.6, Globulin 3.8, Albumin/Globulin Ratio 1.2, Amylase 87, Lipase 91 01/17/17 20:28: WBC 8.2 D, RBC 5.11, Hgb 13.4 L, Hct 38.6 L, MCV 75.5 L, MCH 26.2, MCHC 34.7, RDW 19.2 H, Plt Count 253, MPV 9.1, Gran % 89.7 H, Lymph % ( Auto) 5.0 L, [place] % (Auto) 5.0, Eos % (Auto) 0.2 L, Baso % (Auto) 0.1, Gran # 7.32 H, Lymph # 0.4 L, [place] # 0.4, Eos # 0.0, Baso # 0.01, Neutrophils % (Manual ) 86 H, Band Neutrophils % 1, Lymphocytes % (Manual) 9 L, Monocytes % (Manual) 2 , Platelet Evaluation Normal - RAD Interpretation Radiology Orders: 01/17/17 21:36 ABD & PELVIS W/O PO OR IV CONT [CT] Stat - Medication Orders Current Medication Orders: Discontinued Medications Famotidine (Pepcid) 20 mg IVP STAT STA Stop: 01/17/17 19:58 Last Admin: 01/17/17 20:35 Dose: 20 mg Sodium Chloride (Sodium Chloride 0.9%) 1,000 mls @ 999 mls/hr IV .Q1H1M STA Stop: 01/17/17 20:56 Last Admin: 01/17/17 20:35 Dose: 999 mls/hr Morphine Sulfate (Morphine) 4 mg IVP STAT STA Stop: 01/17/17 21:46 Last Admin: 01/17/17 21:55 Dose: 4 mg Ondansetron HCl (Zofran Inj) 4 mg IVP STAT STA Stop: 01/17/17 19:55 Last Admin: 01/17/17 20:35 Dose: 4 mg - 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 / has examined the patient and agrees with the treatment plan. <Shwetha Olivia - Last Filed: 01/17/17 23:08> Disposition/Present on Arrival - Present on Arrival Any Indicators Present on Arrival: No History of DVT/PE: No History of Uncontrolled Diabetes: No Urinary Catheter: No History of Decub. Ulcer: No History Surgical Site Infection Following: None - Disposition Have Diagnosis and Disposition been Completed?: Yes Disposition Time: 20:00 Patient Plan: Admission <P[place] - Last Filed: 01/17/17 22:55> <Shwetha Olivia - Last Filed: 01/17/17 23:08> - Disposition Diagnosis: Abdominal pain, Colorectal cancer, Liver cancer Disposition: HOSPITALIZED Patient Problems: Current Active Problems Problem Status Onset Abdominal pain Acute Colorectal cancer Acute Liver cancer Acute Condition: SERIOUS
[2017-01-17 21:01] LABS: TROPONIN I < 0.01 ng/mL
[2017-01-17 21:08] LABS: BAND 1 % (0-2); NEUTROPHIL 86 % (50.0-70.0)
[2017-01-17 21:09] LABS: PLATELET ESTIMATE NORMAL (NORMAL)
[2017-01-17] MEDS ORDERED: Morphine 4 mg/ml ISec IVP STA (21:45)
--- NOTE | 2017-01-17 23:48 | CT ---
EXAM: CT Abdomen and Pelvis Without Intravenous Contrast CLINICAL HISTORY: 66 years old, male; Pain; Abdominal pain; Acute; Additional info: Abdominal pain, colon/liver ca, vomiting TECHNIQUE: Axial computed tomography images of the abdomen and pelvis without intravenous contrast. All CT scans at this facility use one or more dose reduction techniques, viz.: automated exposure control; ma/kV adjustment per patient size (including targeted exams where dose is matched to indication; i.e. head); or iterative reconstruction technique. Coronal and sagittal reformatted images were created and reviewed. COMPARISON: No relevant prior studies available. FINDINGS: Lower thorax: There is minimal bibasilar atelectasis. ABDOMEN: Liver: There are no focal liver lesions present. Gallbladder and bile ducts: There has been a cholecystectomy. No ductal dilation. Pancreas: The pancreas is normal. No ductal dilation. Spleen: The spleen is normal. Adrenals: The adrenal glands are normal. Kidneys and ureters: There is a 3.7 CM left lower pole renal cyst. There is no evidence of hydronephrosis. Stomach and bowel: There is small bowel obstruction, with proximal fluid filled loops measuring up to 3.5 CM. Transition zone is distal. There is an intact anastomosis of small bowel loops in the upper pelvis. Nearby proximal loops demonstrate fecalization. This may represent the approximate location of the small bowel obstruction. The stomach is normal. There is an intact anastomosis at the anorectal junction. There is mild constipation in the colon. No mucosal thickening. Appendix: No findings to suggest acute appendicitis. PELVIS: Bladder: Unremarkable. No stones. Reproductive: The prostate gland and seminal vesicles are normal. ABDOMEN and PELVIS: Intraperitoneal space: There is no evidence of free intraperitoneal fluid. There is no free intraperitoneal air. Bones/joints: There are mild degenerative changes present. There is mild diffuse osteopenia. No acute fracture. No dislocation. Soft tissues: There is a generator device in the left lower quadrant anterior abdomen subcutaneous tissues, with a lead that extends to the region of the first/second duodenum.The bladder is normal. There are small, left greater than right fat containing hernias. Vasculature: The aorta demonstrates moderate atherosclerotic calcification. No abdominal aortic aneurysm. Lymph nodes: There is no evidence of lymphadenopathy. IMPRESSION: 1. There is small bowel obstruction, with proximal fluid filled loops measuring up to 3.5 CM. Transition zone is distal. 2. There is an intact anastomosis of small bowel loops in the upper pelvis. Nearby proximal loops demonstrate fecalization. This may represent the approximate location of the small bowel obstruction.
[2017-01-18 00:13] LABS: INR 0.91 (0.93-1.08); PARTIAL THROMBOPLASTIN TIME 23.6 Seconds (23.7-30.8)
[2017-01-18 01:24] LABS: PH,URINE 6.5 (4.7-8.0); URINE BILIRUBIN NEGATIVE (NEGATIVE); URINE BLOOD NEGATIVE (NEGATIVE); URINE GLUCOSE (UA) NEGATIVE (NEGATIVE); URINE KETONE 15 mg/dL (NEGATIVE); URINE LEUKOCYTE ESTERASE NEGATIVE Leu/uL (NEGATIVE); URINE PROTEIN TRACE mg/dL (<30 mg/dL)
[2017-01-18 01:38] LABS: URINE APPEARANCE CLEAR (CLEAR); URINE COLOR YELLOW (YELLOW)
--- NOTE | 2017-01-18 01:40 | CP.PCM.CON ---
History of Present Illness - History of Present Illness History of Present Illness: General surgery consult note: Dr. House 66M w/ PMHx of colon CA s/p colorectal resection and liver resection, on systemic chemotherapy (just finished 6th round on 01/10/17), presents to the ED w / complaints of abdominal pain. Patient states pain began yesterday night. He reports shaun-umbilical pain, denies radiation. Reports his pain is a 5/10 at its worse and currently rates his pain as a 2/10. Patient admits pain has improved since arriving to ED. Patient denies having similar symptoms/issues since starting chemotherapy. He states yesterday morning he had multiple large bowel movements. At time of examination, patient appeared comfortable, denied fever/chills, nausea/vomiting, diarrhea. Has not passed flatus since yesterday. PMHx: hyperlipidemia PSurgHx: colorectal resection for colon CA, liver resection (colon mets) Meds: Aspirin, protonix, ursodiol, atorvastatin Review of Systems - Review of Systems Review of Systems: 12 pt ROS carried out, unremarkable, except as stated in HPI Past Patient History - Infectious Disease Hx of Infectious Diseases: None - Past Social History Smoking Status: Never Smoked - CARDIAC Hx Cardiac Disorders: Yes - PULMONARY Hx Respiratory Disorders: No - NEUROLOGICAL Hx Neurological Disorder: No Hx Transient Ischemic Attacks (TIA): Yes (01/2016) Other/Comment: left hand weakness and blurred vision after tia, left hand weaknes has since improved and so had blurred vision, peripheral vision"minor problem" as per pt - HEENT Hx HEENT Problems: No - RENAL Hx Chronic Kidney Disease: No - ENDOCRINE/METABOLIC Hx Endocrine Disorders: No - HEMATOLOGICAL/ONCOLOGICAL Hx Blood Disorders: Yes Hx Cancer: Yes (colorectal) Hx Chemotherapy: Yes (01/10/17) Other/Comment: with Liver Mets -- on Chemotherapy, pt has implanted chemo pump left abd for liver ca, pt goes every 2 wks on sunday for iv chemo, last treatment pt was ok for 2 days then experienced diarrhea and foul smelling gas on 2 days later, ok next day then diarrhea started the day after had 10 to 14 bm's some soft some shreds - INTEGUMENTARY Hx Dermatological Problems: No - MUSCULOSKELETAL/RHEUMATOLOGICAL Hx Musculoskeletal Disorders: No Hx Falls: No - GASTROINTESTINAL Hx Gastrointestinal Disorders: Yes (diarrhea) Hx Vomiting: Yes (current) - GENITOURINARY/GYNECOLOGICAL Hx Genitourinary Disorders: No - PSYCHIATRIC Hx Psychophysiologic Disorder: No Hx Substance Use: No - SURGICAL HISTORY Hx Cholecystectomy: Yes Other/Comment: colorectal surgery, colostomy reversal 04/2016,dx 1 yr ago colon ca. liver surgery. R chest port, pt had chemo and radiation when dx with colorectal ca, then had bowel sx with colostomy , had chemo then on 15% liver removed 1 month ago - ANESTHESIA Hx Anesthesia: Yes Hx Anesthesia Reactions: No Hx Malignant Hyperthermia: No Meds Allergies/Adverse Reactions: Allergies Allergy/AdvReac Type Severity Reaction Status Date / Time No Known Allergies Allergy Verified 01/17/17 19:55 Physical Exam - Constitutional Appears: No Acute Distress - Head Exam Head Exam: NORMOCEPHALIC - Eye Exam Eye Exam: Normal appearance - ENT Exam ENT Exam: Mucous Membranes Moist - Respiratory Exam Respiratory Exam: NORMAL BREATHING PATTERN - Cardiovascular Exam Cardiovascular Exam: +S1, +S2 - GI/Abdominal Exam GI & Abdominal Exam: Soft, Tenderness. absent: Distended, Guarding, Rebound, Rigid Additional comments: milder tenderness along shaun umbilical region non-distended +liver port, as per patient no chemotherapy being placed through it as liver enzymes have been elevated - Extremities Exam Extremities exam: Negative for: pedal edema - Neurological Exam Neurological exam: Alert, Oriented x3 - Psychiatric Exam Psychiatric exam: Normal Mood - Skin Skin Exam: Dry, Intact, Warm Results - Vital Signs Recent Vital Signs: Last Vital Signs Temp 98.0 F 01/17/17 19:53 Pulse 83 01/17/17 22:17 Resp 97 H 01/17/17 22:17 BP 147/93 H 01/17/17 22:17 Pulse Ox 98 01/17/17 22:17 - Labs Result Diagrams: 01/17/17 20:28 01/17/17 20:28 Labs: Laboratory Results - last 24 hr 01/17/17 23:52 PT 9.8 L INR 0.91 L APTT 23.6 L - Imaging and Cardiology CT scan - abdomen Status: Image reviewed by me, Report reviewed by me Assessment & Plan - Assessment and Plan (Free Text) Assessment: 66M w nausea/vomiting and evidence of SBO w/ distal small bowel fecalization on CT scan -Conservative management -NPO -IVF -Will require NG tube if nausea or abdominal pain worsen -Will continue to monitor -DVT/GI ppx -Further recs per Dr. Harsh Torrez PGY-2
[2017-01-18 01:49] LABS: URINE EPITHELIAL CELLS 0 - 2 /hpf (0-5); URINE RBC 0 - 2 /hpf (0-2); URINE WBC 0 - 2 /hpf (0-6)
[2017-01-18] MEDS ORDERED: Sodium Chloride 0.9% 1,000 ML IV SCH (02:00)
[2017-01-18] MEDS ORDERED: Morphine 2 mg/ml ISec IVP STA (05:34)
--- NOTE | 2017-01-18 05:43 | CP.PCM.PN ---
Subjective - Date & Time of Evaluation Date of Evaluation: 01/18/17 Time of Evaluation: 05:34 - Subjective Subjective: Patient was seen at bedside. Complains of upper abdominal pain. Has no other complaints now. No nausea, no vomiting, no diarrhoea. This 66 year old male was admitted with abdominal pain, nausea, vomiting, SBO. Has PMH of colorectal cancer, S/P chemotherapy, liver mass,TIA. Objective - Vital Signs/Intake and Output Vital Signs (last 24 hours): Temp Pulse Resp BP Pulse Ox 98.0 F 82 20 144/96 H 98 01/17/17 19:53 01/18/17 02:27 01/18/17 02:27 01/18/17 02:27 01/18/17 02:27 - Medications Medications: Current Medications Sodium Chloride (Sodium Chloride 0.9%) 1,000 mls @ 100 mls/hr IV .Q10H AARON Last Admin: 01/18/17 02:16 Dose: 100 mls/hr Ondansetron HCl (Zofran Inj) 4 mg IVP Q6H PRN PRN Reason: Nausea/Vomiting Pantoprazole Sodium (Protonix Inj) 40 mg IVP DAILY AARON - Labs Labs: PT 9.8 Seconds (9.9-11.8) L 01/17/17 23:52 INR 0.91 (0.93-1.08) L 01/17/17 23:52 APTT 23.6 Seconds (23.7-30.8) L 01/17/17 23:52 Most Recent Lab Values WBC 8.2 10^3/ul (4.5-11.0) D 01/17/17 20:28 RBC 5.11 10^6/uL (3.5-6.1) 01/17/17 20:28 Hgb 13.4 g/dL (14.0-18.0) L 01/17/17 20:28 Hct 38.6 % (42.0-52.0) L 01/17/17 20:28 MCV 75.5 fl (80.0-105.0) L 01/17/17 20:28 MCH 26.2 pg (25.0-35.0) 01/17/17 20:28 MCHC 34.7 g/dl (31.0-37.0) 01/17/17 20:28 RDW 19.2 % (11.5-14.5) H 01/17/17 20:28 Plt Count 253 10^3/uL (120.0-450.0) 01/17/17 20: MPV 9.1 fl (7.0-11.0) 01/17/17 20: Gran % 89.7 % (50.0-68.0) H 01/17/17 20: Lymph % (Auto) 5.0 % (22.0-35.0) L 01/17/17 20: [place] % (Auto) 5.0 % (1.0-6.0) 01/17/17 20: Eos % (Auto) 0.2 % (1.5-5.0) L 01/17/17 20: Baso % (Auto) 0.1 % (0.0-3.0) 01/17/17 20: Gran # 7.32 (1.4-6.5) H 01/17/17 20: Lymph # 0.4 (1.2-3.4) L 01/17/17 20: [place] # 0.4 (0.1-0.6) 01/17/17 20: Eos # 0.0 (0.0-0.7) 01/17/17 20: Baso # 0.01 K/mm3 (0.0-2.0) 01/17/17 20: Neutrophils % (Manual) 86 % (50.0-70.0) H 01/17/17 20: Band Neutrophils % 1 % (0-2) 01/17/17 20: Lymphocytes % (Manual) 9 % (22.0-35.0) L 01/17/17 20: Monocytes % (Manual) 2 % (1.0-6.0) 01/17/17 20: Platelet Evaluation Normal (NORMAL) 01/17/17 20: PT 9.8 Seconds (9.9-11.8) L 01/17/17 23:52 INR 0.91 (0.93-1.08) L 01/17/17 23:52 APTT 23.6 Seconds (23.7-30.8) L 01/17/17 23:52 Sodium 135 mmol/L (132-148) 01/17/17 20:28 Potassium 4.2 mmol/L (3.6-5.0) 01/17/17 20:28 Chloride 94 mmol/L (98-107) L 01/17/17 20:28 Carbon Dioxide 29 mmol/L (21-33) 01/17/17 20:28 Anion Gap 16 (10-20) 01/17/17 20:28 BUN 15 mg/dL (7-21) 01/17/17 20:28 Creatinine 0.8 mg/dL (0.5-1.4) 01/17/17 20:28 Est GFR ( Amer) > 60 01/17/17 20:28 Est GFR (Non-Af Amer) > 60 01/17/17 20:28 Random Glucose 152 mg/dL (70-110) H 01/17/17 20:28 Lactic Acid 1.4 mmol/L (0.7-2.1) 01/17/17 20:28 Calcium 9.6 mg/dL (8.4-10.5) 01/17/17 20:28 Total Bilirubin 1.3 mg/dL (0.2-1.3) 01/17/17 20:28 AST 75 U/L (17-59) H 01/17/17 20:28 ALT 74 U/L (7-56) H 01/17/17 20:28 Alkaline Phosphatase 253 U/L (38-126) H 01/17/17 20:28 Lactate Dehydrogenase 765 U/L (333-699) H 01/17/17 20:28 Total Creatine Kinase 64 U/L (35-230) 01/17/17 20:28 Troponin I < 0.01 ng/mL 01/17/17 20:28 Total Protein 8.4 g/dL (5.8-8.3) H 01/17/17 20:28 Albumin 4.6 g/dL (3.0-4.8) 01/17/17 20:28 Globulin 3.8 gm/dL 01/17/17 20:28 Albumin/Globulin Ratio 1.2 (1.1-1.8) 01/17/17 20:28 Amylase 87 U/L (35-125) 01/17/17 20:28 Lipase 91 U/L (23-300) 01/17/17 20:28 Urine Color Yellow (YELLOW) 01/18/17 00:00 Urine Appearance Clear (CLEAR) 01/18/17 00:00 Urine pH 6.5 (4.7-8.0) 01/18/17 00:00 Ur Specific [place] 1.020 (1.005-1.035) 01/18/17 00:00 Urine Protein Trace mg/dL (<30 mg/dL) H 01/18/17 00:00 Urine Glucose (UA) Negative mg/dL (NEGATIVE) 01/18/17 00:00 Urine Ketones 15 mg/dL (NEGATIVE) H 01/18/17 00:00 Urine Blood Negative (NEGATIVE) 01/18/17 00:00 Urine Nitrate Negative (NEGATIVE) 01/18/17 00:00 Urine Bilirubin Negative (NEGATIVE) 01/18/17 00:00 Urine Urobilinogen 1.0 E.U./dL (<1 E.U./dL) H 01/18/17 00:00 Ur Leukocyte Esterase Negative [place]/uL (NEGATIVE) 01/18/17 00:00 Urine RBC 0 - 2 /hpf (0-2) 01/18/17 00:00 Urine WBC 0 - 2 /hpf (0-6) 01/18/17 00:00 Ur Epithelial Cells 0 - 2 /hpf (0-5) 01/18/17 00:00 - Constitutional Appears: Well, No Acute Distress - Head Exam Head Exam: ATRAUMATIC, NORMAL INSPECTION, NORMOCEPHALIC - Eye Exam Eye Exam: Normal appearance - ENT Exam ENT Exam: Mucous Membranes Dry, Normal External Ear Exam - Neck Exam Neck Exam: Normal Inspection - Respiratory Exam Respiratory Exam: NORMAL BREATHING PATTERN - Cardiovascular Exam Cardiovascular Exam: absent: JVD - GI/Abdominal Exam GI & Abdominal Exam: Tenderness (Mild upper abdominal tenderness positive.). absent: Distended - Rectal Exam Rectal Exam: Deferred - Exam Additional comments: Deferred. - Extremities Exam Extremities Exam: Normal Inspection - Back Exam Back Exam: NORMAL INSPECTION - Neurological Exam Neurological Exam: Alert, Oriented x3 - Psychiatric Exam Psychiatric exam: Normal Affect, Normal Mood - Skin Skin Exam: Normal Color Assessment and Plan - Assessment and Plan (Free Text) Assessment: Abdominal pain. Small bowel obstruction. Colorectal cancer. Borderline anemia. Plan: Morphine sulfate 2 mg IV stat. Continue present management as per PMD.
[2017-01-18] MEDS ORDERED: Morphine 2 mg/ml ISec IVP PRN (08:20)
--- NOTE | 2017-01-18 11:11 | CARD ---
APPROVED REPORT EKG Measurement Heart [id number] <Conclusion> Normal sinus rhythm Possible Left atrial enlargement Left bundle branch block Abnormal ECG
--- NOTE | 2017-01-18 15:21 | CP.PCM.CON ---
<Serene Watkins - Last Filed: 01/18/17 15:19> History of Present Illness - History of Present Illness History of Present Illness: S&E at the bedside earlier this morning, chart was reviewed. Request for consult is for colon/liver cancer. HPI: This is a 66-year-old male with a past medical history of colon cancer status post colon and rectal resection and liver resection. The patient is on systemic chemotherapy and completed stick around on January 10, 2017. Patient came to the emergency room with complaints of abdominal pain that started yesterday night, and multiple large bowel movements counting 7-8 times. He denies any melena or bright red blood per rectum. Denies diarrhea. He does report passing gas, no reports of nausea, vomiting, fever, chills, shortness of breath or chest pain. On admission he had a CAT scan of abdomen and pelvis and this revealed small bowel obstruction and moderate stool in the colon. Past medical history: Colon cancer with metastases to the liver, hyperlipidemia Surgical history: Colonoscopy done was 12/2015 in [place], [place], liver resection was 08/24/2016 Allergies: No known drug allergies Medications: Reviewed as per MAR Family history: Noncontributory Social history: Denies smoking, EtOH or substance abuse ROS: Systems reviewed with positive finding see HPI Past Patient History - Infectious Disease Hx of Infectious Diseases: None - Past Social History Smoking Status: Former Smoker - CARDIAC Hx Hypercholesterolemia: Yes - PULMONARY Hx Respiratory Disorders: No - NEUROLOGICAL Hx Neurological Disorder: No Hx Transient Ischemic Attacks (TIA): Yes (01/2016) Other/Comment: left hand weakness and blurred vision after tia, left hand weaknes has since improved and so had blurred vision, peripheral vision"minor problem" as per pt - HEENT Hx HEENT Problems: No - RENAL Hx Chronic Kidney Disease: No - ENDOCRINE/METABOLIC Hx Endocrine Disorders: No - HEMATOLOGICAL/ONCOLOGICAL Hx Blood Disorders: Yes Hx Cancer: Yes (colorectal) Hx Chemotherapy: Yes (01/10/17) Other/Comment: with Liver Mets -- on Chemotherapy, pt has implanted chemo pump left abd for liver ca, pt goes every 2 wks on sunday for iv chemo, last treatment pt was ok for 2 days then experienced diarrhea and foul smelling gas on 2 days later, ok next day then diarrhea started the day after had 10 to 14 bm's some soft some shreds - INTEGUMENTARY Hx Dermatological Problems: No - MUSCULOSKELETAL/RHEUMATOLOGICAL Hx Falls: No - GASTROINTESTINAL Other/Comment: clorectal ca With liver met. - GENITOURINARY/GYNECOLOGICAL Hx Genitourinary Disorders: No - PSYCHIATRIC Hx Substance Use: No - SURGICAL HISTORY Hx Cholecystectomy: Yes Other/Comment: colorectal surgery, colostomy reversal 04/2016,dx 1 yr ago colon ca. liver surgery. R chest port, pt had chemo and radiation when dx with colorectal ca, then had bowel sx with colostomy , had chemo then on 15% liver removed 1 month ago - ANESTHESIA Hx Anesthesia: Yes Hx Anesthesia Reactions: No Hx Malignant Hyperthermia: No Meds Allergies/Adverse Reactions: Allergies Allergy/AdvReac Type Severity Reaction Status Date / Time No Known Allergies Allergy Verified 01/17/17 19:55 - Medications Medications: Current Medications Sodium Chloride (Sodium Chloride 0.45%) 1,000 mls @ 60 mls/hr IV .[id number] [facility] Morphine Sulfate (Morphine) 2 mg IVP Q4H PRN PRN Reason: Pain, moderate (4-7) Ondansetron HCl (Zofran Inj) 4 mg IVP Q6H PRN PRN Reason: Nausea/Vomiting Pantoprazole Sodium (Protonix Inj) 40 mg IVP DAILY [facility] Physical Exam - Constitutional Appears: No Acute Distress - Head Exam Head Exam: NORMOCEPHALIC - Eye Exam Eye Exam: Normal appearance. absent: Scleral icterus - ENT Exam ENT Exam: Mucous Membranes Moist - Neck Exam Neck exam: Positive for: Normal Inspection - Respiratory Exam Respiratory Exam: NORMAL BREATHING PATTERN. absent: Respiratory Distress - Cardiovascular Exam Cardiovascular Exam: +S1, +S2 - GI/Abdominal Exam GI & Abdominal Exam: Normal Bowel Sounds, Soft, Tenderness. absent: Guarding, Rebound - Extremities Exam Extremities exam: Positive for: pedal pulses present. Negative for: calf tenderness, pedal edema - Neurological Exam Neurological exam: Alert, Oriented x3 - Skin Skin Exam: Dry, Warm Results - Vital Signs Recent Vital Signs: Last Vital Signs Temp 98.4 F 01/18/17 07:30 Pulse 86 01/18/17 07:30 Resp 18 01/18/17 07:30 BP 149/81 01/18/17 07:30 Pulse Ox 97 01/18/17 07:30 - Labs Result Diagrams: 01/17/17 20:28 01/17/17 20:28 Labs: Laboratory Results - last 24 hr 01/17/17 01/18/17 23:52 00:00 PT 9.8 L INR 0.91 L APTT 23.6 L Urine Color Yellow Urine Appearance Clear Urine pH 6.5 Ur Specific Gray 1.020 Urine Protein Trace H Urine Glucose (UA) Negative Urine Ketones 15 H Urine Blood Negative Urine Nitrate Negative Urine Bilirubin Negative Urine Urobilinogen 1.0 H Ur Leukocyte Esterase Negative Urine RBC 0 - 2 Urine WBC 0 - 2 Ur Epithelial Cells 0 - 2 Assessment & Plan - Assessment and Plan (Free Text) Assessment: Assessment: Small bowel obstruction Colon cancer with metastases status post colorectal resection and liver resection History of hyperlipidemia Elevated liver enzymes Plan: Nothing by mouth Continue IV for hydration Continued GI prophylaxis Pain management DVT prophylaxis Surgical follow-up Thank you for this consult and for allowing us to participate in your patient's care, further recommendations based upon clinical course. Seen and discussed with Dr. Goff. <Omer Goff V - Last Filed: 01/18/17 23:14> Meds - Medications Medications: Current Medications Sodium Chloride (Sodium Chloride 0.45%) 1,000 mls @ 60 mls/hr IV .[id number] [facility] Last Admin: 01/18/17 17:34 Dose: 60 mls/hr Morphine Sulfate (Morphine) 2 mg IVP Q4H PRN PRN Reason: Pain, moderate (4-7) Ondansetron HCl (Zofran Inj) 4 mg IVP Q6H PRN PRN Reason: Nausea/Vomiting Pantoprazole Sodium (Protonix Inj) 40 mg IVP DAILY [facility] Last Admin: 01/18/17 12:11 Dose: 40 mg Results - Vital Signs Recent Vital Signs: Last Vital Signs Temp 98.5 F 01/18/17 16:00 Pulse 92 H 01/18/17 16:00 Resp 18 01/18/17 16:00 BP 131/77 01/18/17 16:00 Pulse Ox 97 01/18/17 16:00 - Labs Result Diagrams: 01/17/17 20:28 01/17/17 20:28 Labs: Laboratory Results - last 24 hr 01/17/17 01/18/17 23:52 00:00 PT 9.8 L INR 0.91 L APTT 23.6 L Urine Color Yellow Urine Appearance Clear Urine pH 6.5 Ur Specific Gray 1.020 Urine Protein Trace H Urine Glucose (UA) Negative Urine Ketones 15 H Urine Blood Negative Urine Nitrate Negative Urine Bilirubin Negative Urine Urobilinogen 1.0 H Ur Leukocyte Esterase Negative Urine RBC 0 - 2 Urine WBC 0 - 2 Ur Epithelial Cells 0 - 2 Attending/Attestation - Attestation I have personally seen and examined this patient.: Yes I have fully participated in the care of the patient.: Yes I have reviewed all pertinent clinical information: Yes Notes (Text): This is an addendum to GI progress report dictated by Serene Watkins APN.The patient was seen and examined earlier. Medical records, lab studies, imagings were reviewed. Last 24 hours events reviewed. Agreed with the above treatment plan as outlined in Serene Watkins NP's notes the with the addition of the following this 66-year-old patient with a colorectal cancer status post hepatic resection status post radiation and chemotherapy now has a chemotherapy with a portal vein infusion abdomen soft. Distended mild tenderness present CT revealed distended stomach with a small bowel loops Consider NG tube decompression via patient develops abdominal more discomfort or vomiting continue IV fluids Close follow-up of electrolytes 01/18/17 23:10
[2017-01-18] MEDS: Sodium Chloride 0.45% 1,000 ML IV SCH (17:34)
--- NOTE | 2017-01-18 19:39 | HP ---
HISTORY OF PRESENT ILLNESS: I saw the patient in his room this morning. He slept fairly well, still with abdominal pain, not hungry, not passing any gas. He has a history of abdominal pain for 2 nights, nausea, vomiting. He has been getting chemotherapy for colorectal cancer with liver metastasis. He had pain during the first round of chemo, no problems since then, but now he is having pain again. Four episodes of bilious emesis. He has not eaten in 3 days. He cannot sleep because of the pain. He is from [facility]. He has left hand weakness and blurred vision after a TIA. Left hand weakness has a little bit improved, but still with the blurred vision, some peripheral vision, minor problem. He has colorectal cancer, chemotherapy 01/10/2017, also has liver mets, on chemotherapy with chemo pump for liver cancer. Last treatment was 3 days ago. He is having diarrhea, nausea, vomiting. He is having abdominal pain. Never smoked, no alcohol, no drugs. FAMILY HISTORY: No family history to speak of. ALLERGIES: NO KNOWN DRUG ALLERGIES. MEDICATIONS: On Ecotrin, Lipitor for high cholesterol, loperamide for the diarrhea. REVIEW OF SYSTEMS: He is very tired. No acute hearing problems. He does have some vision issues, but nothing acute. No shortness of breath or cough. No chest pain or palpitations. He is having severe abdominal pain, midepigastric; nausea, vomiting. Appetite changes. He is having diarrhea. No problems urinating. Skin for the most part is intact without lesions. No headache or dizziness. No anxiety or depression. PHYSICAL EXAMINATION GENERAL: He is alert and oriented x3. He is in pain. He is uncomfortable with nausea and abdominal pain. VITAL SIGNS: He has had 98 temperature; 82 pulse. Blood pressures are 128/69, it bounced up to 144/96 with pain, was given pain medication to see if the blood pressures will come down, he never had blood pressure before. Respiratory rate 20. O2 saturation 98% on room air. HEENT: His head is atraumatic, normocephalic. Extraocular muscles are intact. Pupils are equally reactive to light and accommodation. NECK: Supple. HEART: Regular rate. Normal S1, S2. LUNGS: Decreased breath sounds, but clear to auscultation. No wheezes, rhonchi or rales. ABDOMEN: Tenderness in midepigastric area. No guarding, no rebound. Decreased bowel sounds if any. Mildly distended. Uncomfortable. NEUROLOGIC: Cranial nerves II through XII grossly intact. SKIN: Warm and dry. NODES: Thyroid midline. No palpable appreciable lymphadenopathy. LABORATORY DATA: He had multiple tests. He had a urine that showed okay, some 1+ bilirubin. Sodium 135, potassium 4.2, BUN 15, creatinine 0.8, GFR is greater than 60, sugar is 152, 1.4, calcium is 9.6. Total bilirubin is 1.3. AST is 75, ALT is 74, alkaline phosphatase 253. Lactic dehydrogenase is 765. Troponin I is less than 0.01. Total protein is 8.4, albumin is 4.6, globulin 3.8, amylase is 87, lipase is 91. INR is 0.91. White cells 8.2, hemoglobin 13.4, hematocrit 38.6, platelets of 253. He had a CAT scan of the abdomen and pelvis, has a small-bowel obstruction with proximal fluid-filled loops measuring up to 3.5 cm. There is an intact anastomosis of the small-bowel loops in the upper pelvis, his pain represents the approximate location of the small-bowel obstruction. He will have surgery, GI in place, IV fluids, pain medications, Protonix, n.p.o. We will continue to watch him. Answered lots of questions. We will talk to his oncologist in the city for him. Check the labs tomorrow as per surgery and GI. He has a small-bowel obstruction, abdominal pain, elevated liver enzymes, hypertension. Prosper Crook DO MTDJojo
--- NOTE | 2017-01-18 20:57 | PN ---
SUBJECTIVE: The patient is seen this morning in room #568, bed #1. The patient is known to have a low anterior resection done with a colostomy reversal and a partial hepatectomy with a hepatic infusion pump placed by Dr. Zuniga in [facility]. The patient has been receiving systemic chemotherapy through a port; most recently about 2 weeks ago, only one infusion of hepatic chemo was given. Several days ago, the patient had multiple bowel movements that were increasing rapidly without blood or mucus followed by some abdominal pain. In the emergency room, the patient had a CAT scan that I reviewed myself clearing showing with his probably small-bowel obstruction with a transition point, dilated loops of bowel and decompressed bowel. There was also stool in the colon. PHYSICAL EXAMINATION: GENERAL: Remarkable for a healthy-looking man without jaundice. Bowel sounds are normal. HEENT: Negative. CHEST: Clear. HEART: Without murmur. ABDOMEN: Soft with some mild epigastric and left upper quadrant pain without guarding, rebound or peritoneal signs. The abdomen is otherwise unremarkable except for the hepatic port on the left side. LABORATORY DATA: Laboratories reviewed with a white count of 8, hemoglobin 13. Coags normal. AST 75, ALT 75, alk phos 250, LDH 750. Glucose 154. Lactic acid normal at 1.4. This is a small-bowel obstruction in a face of systemic chemotherapy. IMPRESSION: Obstruction, however, this could be inflammatory reaction from the chemo, but quite frankly, the CAT scan looks like obstruction. At the present, he is not nauseous and he is not vomiting. We will place an NG tube with obstruction with nausea. The only question I have is if he needs surgery, is he going to stay here to go to [place]. We will continue to follow. I reviewed the note from Dr. Torrez and essentially agree with it and the physical exam; we discussed the exam, the treatment, the history and I agree with his note. Jomar House MD
[2017-01-19] MEDS: Sodium Chloride 0.45% 1,000 ML IV SCH (01:10)
[2017-01-19 01:56] VITALS: RESP 20
[2017-01-19 06:51] VITALS: BP 136/77; PULSE 72; O2SAT 100
[2017-01-19 07:14] LABS: BASO # 0.01 K/mm3 (0.0-2.0); BASO % 0.2 % (0.0-3.0); EOS # 0.2 (0.0-0.7); EOS % 4.2 % (1.5-5.0); GRAN # 2.61 (1.4-6.5); GRAN % 60.4 % (50.0-68.0); HEMATOCRIT 30.8 % (42.0-52.0); LYMPH # 0.8 (1.2-3.4); LYMPH % 17.4 % (22.0-35.0); MEAN CELL VOLUME 76.4 fl (80.0-105.0); MEAN CORPUSCULAR HEMOGLOBIN 25.1 pg (25.0-35.0); MEAN CORPUSCULAR HGB CONC 32.8 g/dl (31.0-37.0); MEAN PLATELET VOLUME 9.5 fl (7.0-11.0); MONO # 0.8 (0.1-0.6); MONO % 17.8 % (1.0-6.0); RED CELL DISTRIBUTION WIDTH 19.6 % (11.5-14.5); WHITE BLOOD COUNT 4.3 10^3/ul (4.5-11.0)
[2017-01-19 07:31] LABS: ALB/GLOB RATIO 1.1 (1.1-1.8); ALKALINE PHOSPHATASE 177 U/L (38-126); ALT/SGPT 73 U/L (7-56); AST/SGOT 52 U/L (17-59); BILIRUBIN,TOTAL 0.7 mg/dL (0.2-1.3); BLOOD UREA NITROGEN 12 mg/dL (7-21); CALCIUM 8.3 mg/dL (8.4-10.5); CARBON DIOXIDE 27 mmol/L (21-33); CHLORIDE 101 mmol/L (98-107); GFR AFRICAN-AMERICAN > 60; GLUCOSE,RANDOM 85 mg/dL (70-110); POTASSIUM 3.3 mmol/L (3.6-5.0); SODIUM 136 mmol/L (132-148); TOTAL PROTEIN 5.9 g/dL (5.8-8.3)
[2017-01-19 08:21] VITALS: TEMP 98
[2017-01-19] MEDS ORDERED: Potassium Chloride 20 mEq ER Tab PO ONE (08:21)
--- NOTE | 2017-01-19 08:31 | CP.PCM.PN ---
Subjective - Date & Time of Evaluation Date of Evaluation: 01/19/17 Time of Evaluation: 08:27 - Subjective Subjective: General Surgery note for Dr. House PT S&E at bedside. Patient is reporting many BM overnight. Patient tolerating CLD. Dr. Crook joined at bedside. Patient is free to go home today if tolerating regular diet at lunch time. Patient denies F/C,N/V,CP and SOB Objective - Vital Signs/Intake and Output Vital Signs (last 24 hours): Temp Pulse Resp BP Pulse Ox 98 F 72 20 136/77 100 01/19/17 08:19 01/19/17 08:19 01/19/17 08:19 01/19/17 08:19 01/19/17 08:19 Intake and Output: 01/19/17 01/19/17 06:59 18:59 Intake Total 0 Output Total 800 Balance -800 - Medications Medications: Current Medications Sodium Chloride (Sodium Chloride 0.45%) 1,000 mls @ 60 mls/hr IV .[id number] [facility] Last Admin: 01/19/17 01:10 Dose: Not Given Morphine Sulfate (Morphine) 2 mg IVP Q4H PRN PRN Reason: Pain, moderate (4-7) Ondansetron HCl (Zofran Inj) 4 mg IVP Q6H PRN PRN Reason: Nausea/Vomiting Pantoprazole Sodium (Protonix Inj) 40 mg IVP DAILY [facility] Last Admin: 01/18/17 12:11 Dose: 40 mg - Labs Labs: 01/19/17 06:30 01/19/17 06:30 PT 9.8 Seconds (9.9-11.8) L 01/17/17 23:52 INR 0.91 (0.93-1.08) L 01/17/17 23:52 APTT 23.6 Seconds (23.7-30.8) L 01/17/17 23:52 - Constitutional Appears: No Acute Distress - Head Exam Head Exam: NORMAL INSPECTION - Eye Exam Eye Exam: EOMI, Normal appearance - ENT Exam ENT Exam: Mucous Membranes Moist - Neck Exam Neck Exam: Full ROM - Respiratory Exam Respiratory Exam: Clear to Ausculation Bilateral, NORMAL BREATHING PATTERN. absent: Accessory Muscle Use, Respiratory Distress - Cardiovascular Exam Cardiovascular Exam: REGULAR RHYTHM. absent: Bradycardia, Tachycardia - GI/Abdominal Exam GI & Abdominal Exam: Soft, Normal Bowel Sounds. absent: Tenderness, Diminished Bowel Sounds, Hypoactive Bowel Sounds - Extremities Exam Extremities Exam: Full ROM, Normal Inspection. absent: Pedal Edema - Neurological Exam Neurological Exam: Alert, Awake, Oriented x3 - Psychiatric Exam Psychiatric exam: Normal Affect, Normal Mood - Skin Skin Exam: Dry, Intact, Normal Color, Warm Assessment and Plan - Assessment and Plan (Free Text) Assessment: 66M w nausea/vomiting and evidence of SBO Plan: diet: liquid diet for breakfast, heart healthy diet at noon IVF NS @ 60 PTX Morphine 2mg IVP Q4H PRN per primary for pain DC home if cleared by primary d/w Dr. Harsh Del Cid, DO PGY1
--- NOTE | 2017-01-19 13:20 | CP.PCM.PN ---
Subjective - Date & Time of Evaluation Date of Evaluation: 01/19/17 Time of Evaluation: 10:55 - Subjective Subjective: Seen and examined at the bedside earlier today, the chart was reviewed. The patient's diet has been advanced to clear liquids and he tolerated well. He does report having semi-loose bowel movement yesterday and today, denies any bleeding. Abdominal pain has resolved although he still has some soreness. Denies nausea, vomiting, fever, or chills. Objective - Vital Signs/Intake and Output Vital Signs (last 24 hours): Temp Pulse Resp BP Pulse Ox 98 F 72 20 136/77 100 01/19/17 08:19 01/19/17 08:19 01/19/17 08:19 01/19/17 08:19 01/19/17 08:19 Intake and Output: 01/19/17 01/19/17 06:59 18:59 Intake Total 0 Output Total 800 Balance -800 - Medications Medications: Current Medications Sodium Chloride (Sodium Chloride 0.45%) 1,000 mls @ 60 mls/hr IV .[id number] [facility] Last Admin: 01/19/17 01:10 Dose: Not Given Morphine Sulfate (Morphine) 2 mg IVP Q4H PRN PRN Reason: Pain, moderate (4-7) Ondansetron HCl (Zofran Inj) 4 mg IVP Q6H PRN PRN Reason: Nausea/Vomiting Pantoprazole Sodium (Protonix Inj) 40 mg IVP DAILY [facility] Last Admin: 01/19/17 10:08 Dose: 40 mg - Labs Labs: 01/19/17 06:30 01/19/17 06:30 PT 9.8 Seconds (9.9-11.8) L 01/17/17 23:52 INR 0.91 (0.93-1.08) L 01/17/17 23:52 APTT 23.6 Seconds (23.7-30.8) L 01/17/17 23:52 - Constitutional Appears: No Acute Distress - Head Exam Head Exam: NORMOCEPHALIC - Eye Exam Eye Exam: Normal appearance. absent: Scleral icterus - ENT Exam ENT Exam: Mucous Membranes Moist - Neck Exam Neck Exam: Normal Inspection - Respiratory Exam Respiratory Exam: Clear to Ausculation Bilateral, NORMAL BREATHING PATTERN. absent: Respiratory Distress - Cardiovascular Exam Cardiovascular Exam: +S1, +S2 - GI/Abdominal Exam GI & Abdominal Exam: Soft, Normal Bowel Sounds. absent: Guarding, Tenderness, Rebound Additional comments: left upper quadrant internal device, abdomen nontender - Extremities Exam Extremities Exam: Normal Capillary Refill. absent: Calf Tenderness, Pedal Edema - Neurological Exam Neurological Exam: Alert, Awake, Oriented x3 - Skin Skin Exam: Dry, Warm Assessment and Plan - Assessment and Plan (Free Text) Assessment: Assessment: Small bowel obstruction Colon cancer with metastases status post colorectal resection and liver resection History of hyperlipidemia Elevated liver enzymes Plan: clear liquids, advance as tolerated, recommend soft low residual diet Continued GI prophylaxis Pain management DVT prophylaxis Surgical follow-up spoke to patient, who will follow up with his oncologist in [place] upon discharge. Seen and discussed with Dr. Goff.
--- NOTE | 2017-01-20 20:51 | DS ---
HISTORY OF PRESENT ILLNESS: I am hoping he goes home this afternoon. He had a good night last night. No belly pain, no abdominal pain. He actually had normal bowel movement this morning, passing gas and he is hungry. We are going to increase his diet to clear fluids for breakfast. If he does well, we will increase it to regular diet for lunch. We will keep that down. The nurse will call me at 2:00 p.m. and we will discharge him. He will be discharged to home. He is going to get really no medications. He takes aspirin, atorvastatin, pantoprazole, and Ursodiol at home. He will continue the same four medications at home. PHYSICAL EXAMINATION: VITAL SIGNS: His vital signs are 98 temp, 72 pulse, 136/77 blood pressure, 20 respiratory rate, and 100% O2 sat on room air. HEENT: His head is atraumatic and normocephalic. Throat is moist. NECK: Supple. HEART: Regular rate. LUNGS: Clear to auscultation. ABDOMEN: Soft. Decreased bowel sounds, but positive. No guarding. No rebound. No CVA tenderness. EXTREMITIES: No edema. LABORATORY DATA: He has 4.3 white count, 10.1 hemoglobin, 30.8 hematocrit with 198 platelets. INR 0.91. Sodium 136; potassium 3.3, I will give him some potassium this morning; BUN 12; creatinine 0.7; GFR is greater than 60, sugar is 85, calcium is 8.3, AST is 52, ALT is 73, alk phos 177, and total protein is 5.9. ASSESSMENT AND PLAN: I discussed this with the surgical technician. He agrees with the plan. We are hoping that he could be discharged later today. We will increase his diet, replace the potassium, and he will be following up with his primary care doctor on Sunday. He came in with acute small bowel obstruction. He has a history of colon cancer and surgery. Prosper Crook DO
== END 2017-01-19 17:09 | disposition home or self-care (01) | DRG 389 ==
LOC: ED 19:17 → ERH 23:01 → 5RNO 01-18 03:14
PROVIDERS: ADMIT Family Medicine; ATTEND Family Medicine
DX: K56.60 Unspecified intestinal obstruction (principal); C19 Malignant neoplasm of rectosigmoid junction; C78.7 Secondary malignant neoplasm of liver and intrahepatic bile duct; E78.5 Hyperlipidemia, unspecified; R74.8 Abnormal levels of other serum enzymes; Z86.73 Personal history of transient ischemic attack (TIA), and cerebral infarction without residual deficits; Z92.3 Personal history of irradiation; Z92.21 Personal history of antineoplastic chemotherapy